=== PATIENT | male | born 1950 | race Caucasian/White ===

== ENCOUNTER 2017-02-12 17:04 | Emergency (ER) | payer OTHER ==
[~2017-02-12] VITALS: Ht 177.8 cm; Wt 105.7 kg
[2017-02-12 17:09] VITALS: BP 121/85
[2017-02-12] MEDS ORDERED: LASIX 40 MG TAB40 M2 PO (17:11)
[2017-02-12] MEDS ORDERED: SIMVASTATIN40 MG PO (17:11)
[2017-02-12] MEDS ORDERED: CARVEDILOL25 MG PO (17:11)
[2017-02-12] MEDS ORDERED: ALDACTONE25 MG PO (17:12)
[2017-02-12] MEDS ORDERED: LISINOPRIL5 MG PO (17:12)
[2017-02-12] MEDS ORDERED: K-DUR10 MEQ PO (17:13)
[2017-02-12] MEDS ORDERED: XARELTO20 MG PO (17:13)
[2017-02-12] MEDS ORDERED: DOXYCYCLINE 10100 MG PO (18:25)
== END 2017-02-12 18:55 | disposition home or self-care (01) ==
LOC: ER 17:04
DX: L02.212 Cutaneous abscess of back [any part, except buttock and flank] (principal); Z90.89 Acquired absence of other organs; Z95.5 Presence of coronary angioplasty implant and graft

== ENCOUNTER 2017-02-16 09:49 | Emergency (ER) | payer OTHER ==
[~2017-02-16] VITALS: Ht 177.8 cm; Wt 105.7 kg
[2017-02-16 09:49] VITALS: BP 128/88
[~2017-02-16 09:49] MED LIST: ALDACTONE25 MG PO; CARVEDILOL25 MG PO; DOXYCYCLINE 10100 MG PO; K-DUR10 MEQ PO; LASIX 40 MG TAB40 M2 PO; LISINOPRIL5 MG PO; SIMVASTATIN40 MG PO; XARELTO20 MG PO
[2017-02-16] MEDS ORDERED: BACTRIM DS TAB1 EACH PO (10:19)
[2017-02-16] MEDS ORDERED: NORCO 5-325 TA1 EACH PO (10:23)
== END 2017-02-16 11:08 | disposition home or self-care (01) ==
LOC: ER 09:49
DX: L02.212 Cutaneous abscess of back [any part, except buttock and flank] (principal); Z98.890 Other specified postprocedural states; Z95.5 Presence of coronary angioplasty implant and graft

== ENCOUNTER → 2017-02-24 | Outpatient (CLI) | payer OTHER ==
[~2017-02-24] MED LIST changes: +BACTRIM DS TAB1 EACH PO; +NORCO 5-325 TA1 EACH PO
== END ==
LOC: HYPER 07:09
DX: T81.89XA Other complications of procedures, not elsewhere classified, initial encounter (principal); I50.9 Heart failure, unspecified; Z86.711 Personal history of pulmonary embolism; Z87.891 Personal history of nicotine dependence; Z72.89 Other problems related to lifestyle; Y83.8 Other surgical procedures as the cause of abnormal reaction of the patient, or of later complication, without mention of misadventure at the time of the procedure

== ENCOUNTER → 2017-03-11 | Outpatient (CLI) | payer OTHER | LOC: HYPER 08:13 | DX: T81.89XD Other complications of procedures, not elsewhere classified, subsequent encounter (principal); Z86.711 Personal history of pulmonary embolism; Z87.891 Personal history of nicotine dependence; Y83.8 Other surgical procedures as the cause of abnormal reaction of the patient, or of later complication, without mention of misadventure at the time of the procedure ==

== ENCOUNTER → 2017-03-28 | Outpatient (CLI) | payer OTHER | LOC: HYPER 07:06 | DX: T81.89XD Other complications of procedures, not elsewhere classified, subsequent encounter (principal); L02.212 Cutaneous abscess of back [any part, except buttock and flank]; I50.9 Heart failure, unspecified; Z87.891 Personal history of nicotine dependence; Z72.89 Other problems related to lifestyle; Z86.711 Personal history of pulmonary embolism; Y83.8 Other surgical procedures as the cause of abnormal reaction of the patient, or of later complication, without mention of misadventure at the time of the procedure ==

== ENCOUNTER 2017-04-18 07:39 | Day surgery (SDC) | payer OTHER ==
[~2017-04-18] VITALS: Ht 177.8 cm; Wt 106.6 kg
--- NOTE | ~2017-04-18 | O ---
[facility] [place] [address] OPERATIVE REPORT Name: SUPRIYA KUMAR Room #: DEP [facility] M..#: [id number] Admission: 04/18/17 Attend Phys: Olaf Campos MD Discharge: 04/18/17 Date of : 50 Report #: [id number] THIS REPORT FOR: //name// CC: [facility] DATE OF SERVICE: 04/18/2017 PREOPERATIVE DIAGNOSES: Upper back mass lesion. POSTOPERATIVE DIAGNOSES: Upper back mass lesion, pending pathology. SURGEON: Olaf Campos MD. IMPLEMENTATION TECHNICIAN: None. PROCEDURE: Full thickness excision of upper back mass lesion, consistent with chronically infected cyst including skin, subcutaneous tissue, down through, and including the muscle and fascia overlying the trapezius. Complex layered closure with mobilization of adjacent skin and soft tissue flaps. FINDINGS: Specimens appeared most consistent with a chronically and recurrently infected large sebaceous cyst, ellipsoid excision measuring 11 cm transverse x 3.5 cm craniocaudad x 3 cm deep. ESTIMATED BLOOD LOSS: 25 mL. IV FLUIDS: 2 liters of crystalloid. SPECIMENS TO PATHOLOGY: Upper back skin and soft tissue lesion, oriented with short stitch superior, long stitch left lateral. INDICATION FOR PROCEDURE: The patient is a very pleasant 67-year-old gentleman, who has history of a lesion on his upper back, which has been incised and drained multiple times in the Emergency Department. He has also been on multiple rounds of antibiotics, including apparently 3 rounds of antibiotics over the past 2 months. Despite this, he has a persistently draining erythematous lesion, on his upper back at approximately the T1 level, that is quite tender. This has malodorous fluid, chronically expressible from that lesion, which gives the impression that this could be an infected cyst. Detailed discussion of risks and benefits of surgical intervention was held with the patient and his . Risks including recurrence of bleeding, pain, infection, need for further excision in the future, possible wound breakdown with postoperative infection of the excision site, which might require long-term wound care including packing or other local wound care therapy, significant postoperative pain, muscle weakness and numbness of the area surrounding this [address] [address] OPERATIVE REPORT Name: SUPRIYA KUMAR Room #: DEP [facility] Pb.Damaris.#: [id number] Admission: 04/18/17 Attend Phys: Olaf Campos MD Discharge: 04/18/17 Date of : 50 Report #: [id number] wound were also discussed. All questions were answered to the patient's satisfaction. Written and informed consent was obtained. DESCRIPTION OF PROCEDURE: The patient was brought to the operating room and placed in a supine position. A timeout was taken to verify the patient's identity and to plan the procedure. SCDs were in place on the lower extremities bilaterally. Preoperative antibiotics were administered. Anesthesia was induced. The patient was intubated. The patient was placed in the prone position with care to protect all pressure points with appropriate padding. The upper back was then sterilely prepped and draped after the skin had been taped into a configuration, which would give the best exposure of the upper back soft tissue lesion. The area was marked out with a sterile marking pen. After sterile prep and drape had been applied, the lesion appeared circumscribed with a central punctum and one more inferior secondary punctum, which appeared to be consistent with a prior infection of that, which had healed. The mass itself appeared to be approximately 3.5 cm in the craniocaudad direction. Therefore, a skin ellipse, measuring 11 cm transverse x 3.5 cm craniocaudad was chosen. A field block injection of 0.5% Marcaine with epinephrine was performed, surrounding an underlying soft tissue lesion. #10 blade was utilized to create the ellipse through the skin and then electrocautery and sharp dissection was performed. A full thickness down through the skin and subcutaneous tissue, down to the level of the fascia. The mass appeared to be adherent to the fascia, and therefore, the fascia was excised and the area deep to this lesion, which exposed the trapezius muscle. Once the mass was fully excised, this was marked for orientation using sutures. Short stitch was marked superior, long stitch was left lateral position. The mass was then passed off for permanent analysis. Wound was then irrigated with copious sterile saline and suctioned clear. There were several points of oozing, requiring electrocautery for full hemostasis. Skin and soft tissue flaps were then elevated with undermining in the superior and inferior direction, as well as in the left and right lateral directions. Once the skin and soft tissue had been adequately mobilized, the upper back skin was un-taped to allow for a tension-free closure. Next, a complexed layered closure was performed using a combination of 0 Vicryl deep interrupted suture, which were also utilized to anchor to the musculature and fascia on the deep aspect of interrupted 0 PDS. Deep soft tissue and deep durable suture were next utilized. More superficially vertical mattress 0 Prolene sutures were utilized and along the incision itself, 2-0 nylon interrupted sutures were utilized. Prior to closing, Madelyn hemostatic agent was applied into the base of the wound for added hemostatic effect. After completion of the closure, the incision was coated with triple antibiotic ointment, and then the wound was covered with a sterile pressure dressing in the form of 4 x 4 fluffs, ABD, and Medipore tape. Further local anesthetic had been infiltrated into the wound prior to completion of the closure. It should also be noted that no obvious purulence was identified, as the mass was excised en bloc and was not itself opened. There was, however, some fluid which was visible at the punctum, but efforts were made to minimize spillage of this into [facility] [address] [place] [address] OPERATIVE REPORT Name: SUPRIYA KUMAR [facility] [id number] Admission: 04/18/17 Attend Phys: Olaf Campos MD Discharge: 04/18/17 Date of : 50 Report #: [id number] the wound; however, as this fluid was visible, and this had been a known site of infection, this would indicate that this was technically a contaminated case. At this point, the case was ended, all instrumentation had been extracted and accounted for. All counts were correct per nurse report. The patient was placed back in the supine position. He was then awakened, extubated, and taken to the postoperative care unit in stable condition. By: 1439 1819 Olaf Campos MD /nt
--- NOTE | ~2017-04-18 | S ---
[facility] [address] SURGICAL PATH RPT PROCEDURE Name: SUPRIYA POLK Room #: DEP [facility] M.R.#: [id number] Admission: 04/18/17 Date of : 50 Discharge: 04/18/17 Report #: [id number] Path Case #: [id number] PATHOLOGY REPORT COLLECTION DATE: 04/18/2017 RECEIVED DATE: 04/19/2017 SUBMITTING PHYS: Dr. Olaf Campos OTHER PHYS: Dr. Damien Bhatia SPECIMEN(S) RECEIVED: A.Upper back soft tissue mass * * * * * * * * * * * * FINAL DIAGNOSIS: Skin and subcutaneous tissue, upper back soft tissue mass, excision: - Two mature keratinous cysts identified. - Marked acute and chronic inflammation, compatible with reaction to a ruptured cyst within the dermis and subcutaneous tissue. - Negative for malignancy. PATHOLOGIST: Brittnee Guerrero M.D. REPORT ELECTRONICALLY SIGNED BY: Brittnee Guerrero M.D. DATE/TIME: 04/21/2017 12:38 * * * * * * * * * * * * GROSS PATHOLOGY: The specimen is received in formalin labeled "Supriya Polk, upper back soft tissue mass, short superior, long left lateral". Received is an oriented ellipse of skin with attached fibroadipose tissue measuring 9.3 x 4.8 x 3.8 cm in greatest dimensions with a short suture placed along one edge designating this as the superior aspect, which will further be designated as the 12:00 margin, and a long suture placed at one tip designating this as the left lateral aspect, which will further be designated as the 9:00 margin. The surgical margins are inked as follows: 12 to 3:00-blue, 3 to 9:00-black and 9 to 12:00-yellow. The epidermal surface displays a well-circumscribed, irregular in contour and garcia-hess to red-brown lesion measuring 1.4 x 0.7 cm, which probes to a depth of 0.7 cm. At the 6:00 aspect, there is a secondary lesion which is well-circumscribed, irregular in contour and light brown measuring 0.5 x 0.5 cm. Sectioning reveals two unilocular cystic structures measuring 0.5 and 0.8 cm filled with white-hess to pink-hess friable material. The remainder of the specimen displays white-hess yellow-hess cut surfaces. The specimen is submitted representatively as follows: A1-A2 pharmacy services representative sections of cystic structures [address] [address] SURGICAL PATH RPT PROCEDURE Name: SUPRIYA POLK [facility] [id number] Admission: 04/18/17 Date of : 50 Discharge: 04/18/17 Report #: [id number] Path Case #: [id number] A3 pharmacy services representative section of primary lesion A4 pharmacy services representative section of secondary lesion. (CAA; 04/20/2017) CLINICAL HISTORY: Soft tissue mass upper back INITIAL CPT CODE(S): 56842 Professional services performed by [facility] at [facility] [address], [place] [address] Technical services performed by [facility] at [address] [place] [address], [address], [place] [address]. [facility] [address] [place] [address] PHONE: [phone] DIRECTOR: Jason Thomas M.D. * * * END OF REPORT * * *
[~2017-04-18 07:39] MED LIST changes: -XARELTO20 MG PO
[2017-04-18 08:37] LABS: HEMATOCRIT 46.1 % (42.0-52.0); HEMOGLOBIN 15.7 gm/dL (14.0-18.0)
[2017-04-18 10:36] VITALS: BP 114/79
[2017-04-18] MEDS ORDERED: HYDROCODONE-AP1 EAC6 PO (13:49)
[2017-04-18] MEDS ORDERED: ALEVE220 MG PO (13:49)
[2017-04-18] MEDS ORDERED: COLACE100 MG PO (13:49)
[2017-04-18 14:07] VITALS: BP 114/79
[2017-04-18] MEDS ORDERED: XARELTO20 MG PO (17:13)
== END 2017-04-18 13:15 | disposition home or self-care (01) ==
LOC: OR 07:39 → TBA 07:40 → OR 08:33
PROVIDERS: Otolaryngology
DX: L72.0 Epidermal cyst (principal); L02.212 Cutaneous abscess of back [any part, except buttock and flank]; I10 Essential (primary) hypertension; E78.00 Pure hypercholesterolemia, unspecified; Z98.890 Other specified postprocedural states; Z87.891 Personal history of nicotine dependence; Z91.048 Other nonmedicinal substance allergy status; Z86.711 Personal history of pulmonary embolism
CPT/HCPCS: 50010; 50101; 50386; 50403; 52287; 56524; 56525; 56526; 56528; 62110; 62900; 70005

== ENCOUNTER → 2017-06-27 | Outpatient (CLI) | payer OTHER ==
[~2017-06-27] MED LIST changes: +ALEVE220 MG PO; +COLACE100 MG PO; +HYDROCODONE-AP1 EAC6 PO; +XARELTO20 MG PO
--- NOTE | ~2017-06-27 | 2DMMODE ---
[facility] [place] [address] 2 D/M-MODE ECHOCARDIOGRAM Name: SUPRIYA KUMAR Room #: REG CL [place]#: [id number] Admission: 06/27/17 Attend Phys: Lucio Chapman, Discharge: Date of : 50 Date of Service: 06/27/17 1033 Report #: [id number] THIS REPORT FOR: //name// APPROVED REPORT Study performed: 06/27/2017 08:48:54 EXAM: Comprehensive 2D, Doppler, and color-flow Echocardiogram Patient Location: Out-Patient Status: routine BSA: 2.19 HR: 77 bpm BP: 119/89 mmHg Rhythm: Atrial Fibrillation Other Information Study Quality: Adequate Indications LV function. Hx: NISCM, permanent Afib, HTN, HLP 2D Dimensions RVDd: 41.77 mm LVEF(%): 55.96 (>50%) IVSd: 8.99 (7-11mm) LVOT Diam: 21.67 (18-24mm) LVDd: 50.30 mm PWd: 8.99 (7-11mm) Ascending Ao: 33.17 (22-36mm) LVDs: 35.54 (25-40mm) Aortic Root: 29.46 mm Cobian's LVEF: 55.96 % Volumes Left Atrial Volume (Systole) Single Plane 4CH: 53.28 mL Single Plane 2CH: 80.49 mL Aortic Valve AoV Peak Bart.: 1.11 m/s AO Peak Gr.: 4.89 mmHg LVOT Max P.52 mmHg LVOT Max V: 0.79 m/s BRENDAN Vmax: 2.64 cm2 Mitral Valve MV Decel. Time: 215.52 ms MV E Max Bart.: 1.04 m/s IVRT: 58.82 ms [facility] [place] [address] 2 D/M-MODE ECHOCARDIOGRAM Name: SUPRIYA KUMAR Room #: REG Janice#: [id number] Admission: 06/27/17 Attend Phys: Lucio Chapman, Discharge: Date of : 50 Date of Service: 06/27/17 1033 Report #: [id number] Pulmonary Valve PV Peak Bart.: 1.05 m/s PV Peak Gr.: 4.45 mmHg Pulmonary Vein P Vein S: 0.27 m/s P Vein D: 0.42 m/s P Vein S/D Ratio: 0.64 Tricuspid Valve TR Peak Bart.: 2.42 m/s RAP Estimate: 5.00 mmHg TR Peak Gr.: 23.56 mmHg PA Pressure: 29.00 mmHg Left Ventricle The left ventricle is normal size. There is normal left ventricular wall thickness. Left ventricular systolic function is low normal. LVEF is 50%. This study is not technically sufficient to allow evaluation of the LV diastolic function due to atrial fibrillation. Right Ventricle Right ventricle is mildly dilated. The right ventricular systolic function is low normal. Atria Left atrium is dilated. Right atrium is dilated. Aortic Valve The aortic valve is normal in structure. No aortic regurgitation is present. There is no aortic valvular stenosis. Mitral Valve The mitral valve is normal in structure. Mild mitral regurgitation. Tricuspid Valve The tricuspid valve is normal in structure. There is trace tricuspid regurgitation. The right atrial pressure is estimated at 5 mmHg. Estimated PAP is 29mmHg. Pulmonic Valve The pulmonary valve is normal in structure. Trace pulmonic regurgitation. Great Vessels [facility] [address] [address] 2 D/M-MODE ECHOCARDIOGRAM Name: SUPRIAY KUMAR Room #: REG [facility]#: [id number] Admission: 06/27/17 Attend Phys: Lucio Chapman, Discharge: Date of : 50 Date of Service: 06/27/17 1033 Report #: [id number] The aortic root is normal in size. The ascending aorta is normal in size. IVC is normal in size and collapses >50% with inspiration. Pericardium There is no pericardial effusion. <Conclusion> The left ventricle is normal size. Left ventricular systolic function is low normal. LVEF is 50%. This study is not technically sufficient to allow evaluation of the LV diastolic function due to atrial fibrillation. Right ventricle is mildly dilated. Left atrium is dilated. Right atrium is dilated. There is no aortic valvular stenosis. Mild mitral regurgitation. There is trace tricuspid regurgitation. The right atrial pressure is estimated at 5 mmHg. Estimated PAP is 29mmHg. There is no pericardial effusion. <ELECTRONICALLY SIGNED> By: Rc Leonard MD, FACC 06/27/17 1033 1033 1033 Rc Leonard MD, FACC /INF
== END ==
LOC: CV 09:25
DX: I10 Essential (primary) hypertension (principal); I42.9 Cardiomyopathy, unspecified; I34.0 Nonrheumatic mitral (valve) insufficiency; I48.91 Unspecified atrial fibrillation; E78.5 Hyperlipidemia, unspecified

== ENCOUNTER → 2019-08-22 | Outpatient (CLI) | payer OTHER ==
--- NOTE | 2019-08-22 09:16 | 2DMMODE ---
[facility] [address] [address] 2 D/M-MODE ECHOCARDIOGRAM Name: SUPRIYA KUMAR Room #: REG CL FarhatFarhat#: [id number] Admission: 08/22/19 Attend Phys: Lucio Chapman, Discharge: Date of : 50 Report #: [id number] THIS REPORT FOR: //name// APPROVED REPORT Study performed: 08/22/2019 07:47:56 EXAM: Comprehensive 2D, Doppler, and color-flow Echocardiogram Patient Location: Out-Patient Status: routine BSA: 2.25 HR: 62 bpm BP: 140/70 mmHg Rhythm: Atrial Fibrillation Other Information Study Quality: Adequate Indications Atrial Fibrillation Hypertension/HDD 2D Dimensions RVDd: 45.24 mm IVSd: 11.00 (7-11mm) LVOT Diam: 20.05 (18-24mm) LVDd: 50.65 mm PWd: 11.09 (7-11mm) Ascending Ao: 34.46 (22-36mm) LVDs: 36.51 (25-40mm) Aortic Root: 31.09 mm IVC: 19.00 mm Volumes Left Atrial Volume (Systole) Single Plane 4CH: 82.71 mL Single Plane 2CH: 101.98 mL Aortic Valve AoV Peak Bart.: 1.03 m/s AO Peak Gr.: 4.27 mmHg LVOT Max P.86 mmHg LVOT Max V: 0.68 m/s BRENDAN Vmax: 2.08 cm2 Pulmonary Valve PV Peak Bart.: 1.03 m/s PV Peak Gr.: 4.20 mmHg Tricuspid Valve [facility] [address] [place] [address] 2 D/M-MODE ECHOCARDIOGRAM Name: SUPRIYA KUMAR Room #: REG CL [facility]#: [id number] Admission: 08/22/19 Attend Phys: Lucio Chapman, Discharge: Date of : 50 Report #: [id number] TR Peak Bart.: 3.18 m/s RAP Estimate: 5.00 mmHg TR Peak Gr.: 40.34 mmHg PA Pressure: 45.00 mmHg Left Ventricle The left ventricle is normal size. There is normal LV segmental wall motion. There is normal left ventricular wall thickness. Left ventricular systolic function is low normal. LVEF is 50-55%. This study is not technically sufficient to allow evaluation of the LV diastolic function due to atrial fibrillation. Right Ventricle The right ventricle is normal size. The right ventricular systolic function is normal. Atria Left atrium is moderately dilated. Right atrium is dilated. Aortic Valve The aortic valve is normal in structure. No aortic regurgitation is present. There is no aortic valvular stenosis. Mitral Valve The mitral valve is normal in structure. Mild to moderate mitral regurgitation. No evidence of mitral valve stenosis. Tricuspid Valve The tricuspid valve is normal in structure. Mild tricuspid regurgitation. Estimated PAP is 45mmHg. Pulmonic Valve The pulmonary valve is normal in structure. Trace pulmonic regurgitation. Great Vessels The aortic root is normal in size. IVC is normal in size and collapses >50% with inspiration. Pericardium There is no pericardial effusion. <Conclusion> Left ventricular systolic function is low normal. There is normal LV segmental wall motion. LVEF is 50-55%. Left atrium is moderately dilated. [facility] [address] [place] [address] 2 D/M-MODE ECHOCARDIOGRAM Name: SUPRIYA KUMAR Room #: REG [facility]#: [id number] Admission: 08/22/19 Attend Phys: Lucio Chapman, Discharge: Date of : 50 Report #: [id number] The aortic valve is normal in structure. No aortic regurgitation or stenosis The mitral valve is normal in structure. Mild to moderate mitral regurgitation. Mild tricuspid regurgitation. Estimated pulmonary artery pressure of 45mmHg. There is no pericardial effusion. <ELECTRONICALLY SIGNED> By: Lucio Chapman MD, FACC 08/22/19915 5 5 Lucio Chapman MD, FACC /INF
== END ==
LOC: CV 08:03
DX: I42.0 Dilated cardiomyopathy (principal); I11.0 Hypertensive heart disease with heart failure; I50.32 Chronic diastolic (congestive) heart failure; I48.21 Permanent atrial fibrillation

== ENCOUNTER → 2020-09-04 | Outpatient (CLI) | payer OTHER | LOC: SJCVC 09:56 | PROVIDERS: ATTEND Internal Medicine | DX: I11.0 Hypertensive heart disease with heart failure (principal); I50.32 Chronic diastolic (congestive) heart failure; I48.21 Permanent atrial fibrillation; I42.0 Dilated cardiomyopathy; R94.31 Abnormal electrocardiogram [ECG] [EKG]; E78.5 Hyperlipidemia, unspecified; E11.9 Type 2 diabetes mellitus without complications; Z79.01 Long term (current) use of anticoagulants; Z79.84 Long term (current) use of oral hypoglycemic drugs; Z87.891 Personal history of nicotine dependence ==